=== PATIENT | male | born 1955 | race Caucasian/White ===

== ENCOUNTER 2019-12-29 17:49 | Emergency (ER) | payer BC ==
--- OUTSIDE RECORDS SUMMARY | 2019-12-29 18:24 | XMS REPORT | Continuity of Care Document ---
:1955 External Reference #:[id number] Author Name Navi Ghosh M.D. (transmitted by agent of provider Jovanna Valera ) Address [address], [address] [place] [id number] Care Team Providers Name Role Phone Emery Duncan MD - Family Medicine Care Team Information Skin Washer [phone] Problems Active Problems Provider Date Parkinson's disease Zeferino Jaeger M.D. Onset: 02/19/2015 Social History Type Date Description Comments Sex Unknown Tobacco Use Start: Unknown Never Smoked Cigarettes Smoking Status Reviewed: 12/03/19 Never Smoked Cigarettes ETOH Use Denies alcohol use Tobacco Use Start: Unknown Patient has never smoked Recreational Drug Use Denies Drug Use Exercise Type/Frequency Exercises regularly active at home Allergies, Adverse Reactions, Alerts Description No Known Drug Allergies Medications Active Medications SIG Qnty Indications Ordering Provider Date Carbidopa-Levodopa 2 tabs by mouth 1260tabs Navi Ghosh, 06/03/2014 every morning; 2 M.D. 25-100mg Tablets tab every 2-3 hours throughout rest of day History Medications Carbidopa-Levodopa 2 tabs by mouth 90tabs Navi Ghosh, 11/02/2019 - 10-100mg every morning; 1 M.D. 11/02/2019 Tablets Dispers tab every 2-3 hours throughout rest of day Carbidopa-Levodopa 2 tabs by mouth 90tabs Navi Ghosh, 11/02/2019 - 25-100mg every morning; 1 M.D. 11/05/2019 Tablets tab every 2-3 hours throughout rest of day Immunizations Description No Information Available Vital Signs Date Vital Result Comment 12/03/2019 8:49am Height 73 inches 6'1" Weight 142.00 lb Heart Rate 75 /min BP Systolic 142 mmHg BP Diastolic 88 mmHg BMI (Body Mass Index) 18.7 kg/m2 11/07/2019 11:51am Height 73 inches 6'1" Weight 140.00 lb Heart Rate 77 /min BP Systolic 142 mmHg BP Diastolic 100 mmHg BMI (Body Mass Index) 18.5 kg/m2 Results Description No Information Available Procedures Date Code Description Status 09/03/2019 36394 Neurostimulator Pulse Generator Analysis W/O Reprogramming Completed 06/08/2019 70406 Neurostimulator Pulse Generator Analysis W/O Reprogramming Completed Medical Devices Description No Information Available Encounters Type Date Location Provider Dx Diagnosis Office Visit 11/07/2019 [facility] Navi Ghosh G20 Parkinson' s 11:45a [facility] Dona disease Assessments Date Code Description Provider 12/03/2019 G20 Parkinson's disease Navi Ghosh M.D. 11/07/2019 G20 Parkinson's disease Navi Ghosh M.D. 09/03/2019 G20 Parkinson's disease Navi Ghosh M.D. 09/03/2019 Z45.42 Encounter for adjustment and management of Navi Ghosh M.D. neurostimulator 06/08/2019 G20 Parkinson's disease Navi Ghosh M.D. 06/08/2019 Z45.42 Encounter for adjustment and management of Navi Ghosh M.D. neurostimulator Plan of Treatment Future Appointment(s):12/06/2019 4:00 pm - Navi Ghosh M.D. at [facility] - Navi Ghosh M.D.G20 Parkinson's diseaseFollow up:Follow up on for Reprogramming Functional Status Description No Information Available Mental Status Description No Information Available Referrals Description No Information Available
--- NOTE | 2019-12-29 20:11 | ED ---
Back Pain - HPI Summary HPI Summary: This patient is a 64 year old M with a history of Parkinsons and DBS presenting to ED with a chief complaint of right-sided back pain since last week. Last week, the patient fell. He was able to get up after the initial fall. Since then, the pain has been constant. However, today, he bent over and fell to the ground and he could not get back up as he had cramping pain. Patient fell on ice today. At the time, patient states the pain was 10/10. Patient denies trouble walking or trouble using the bathroom. The pain does not radiate anywhere and is confined to one area. He has been taking Ibuprofen as needed for the pain. The patient rates the pain 1/10 in severity. Symptoms aggravated by nothing. Symptoms alleviated by Ibuprofen. - History of Current Complaint Chief Complaint: EDBackInjuryPain Stated Complaint: BACK PAIN PER PT Hx Obtained From: Patient Onset/Duration: Sudden Onset, Lasting Weeks - 1 week, Still Present, Worse Since Onset/Duration: Started Weeks Ago, Traumatic - Fall, Still Present Timing: Constant, Lasting Weeks Back Pain Location: Is Discrete @ - Right low back Severity Initially: Severe Severity Currently: Mild Pain Intensity: 1 Pain Scale Used: 0-10 Numeric Aggravating Symptom(s): Nothing Alleviating Symptom(s): OTC Meds - Ibuprofen Associated Signs And Symptoms: Negative: Bladder Incontinence, Bowel Incontinence, Pain with Weight Bearing - Allergies/Home Medications Allergies/Adverse Reactions: Allergies Allergy/AdvReac Type Severity Reaction Status Date / Time No Known Allergies Allergy Verified 12/29/19 18:09 PMH/Surg Hx/FS Hx/Imm Hx Sensory History: Denies: Hx Legally Blind, Hx Deafness Opthamlomology History: Denies: Hx Legally Blind EENT History: Denies: Hx Deafness Neurological History: Reports: Other Neuro Impairments/Disorders - Parkinson's - Surgical History Surgical History: None Surgery Procedure, Year, and Place: Denies Infectious Disease History: No Infectious Disease History: Denies: Traveled Outside the [place] in Last 30 Days - Family History Known Family History: Positive: Other - Negative: suicide attempt Negative: Hypertension, Diabetes - Social History Alcohol Use: None Hx Substance Use: No Substance Use Type: Reports: None Hx Tobacco Use: No Smoking Status (MU): Never Smoked Tobacco Review of Systems Gastrointestinal: Negative - Difficulty having bowel movement Genitourinary: Negative - Difficulty urinating Musculoskeletal: Negative - Difficulty walking, Other - Back pain All Other Systems Reviewed And Are Negative: Yes Physical Exam - Summary Physical Exam Summary: Appearance: Well-appearing, Well-nourished, lying in bed comfortable Skin: Warm, dry, no obvious rash Eyes: sclera anicteric, no conjunctival pallor ENT: mucous membranes moist Neck: deferred Respiratory: No signs of respiratory distress Cardiovascular: Appears well perfused, pulses are nml Abdomen: deferred Musculoskeletal: Focal tenderness over posterior superior iliac spine on the right, no bruising or swelling Neurological: Awake and alert, mentation is normal, speech is fluent and appropriate Psychiatric: affect is normal, does not appear anxious or depressed Triage Information Reviewed: Yes Vital Signs On Initial Exam: Initial Vitals Temp Pulse Resp BP Pulse Ox 98.2 F 81 19 161/112 99 12/29/19 18:04 12/29/19 18:04 12/29/19 18:04 12/29/19 18:04 12/29/19 18:04 Vital Signs Reviewed: Yes Procedures - Sedation Patient Received Moderate/Deep Sedation with Procedure: No Diagnostics - Vital Signs Vital Signs Temp Pulse Resp BP Pulse Ox 12/29/19 18:04 98.2 F 81 19 161/112 99 - Laboratory Lab Statement: Any lab studies that have been ordered have been reviewed, and results considered in the medical decision making process. - Radiology Lumbar XR Radiology Interpretation Completed By: ED Physician Summary of Radiographic Findings: Negative for fracture, pending official radiology report. Re-Evaluation - Re-Evaluation First Eval Re-Evaluation Time: 21:15 Comment: Discussed results with patient. Patient will be discharged home with dx of back spasm. Patient understands and agrees with this plan. Back Pain Course/Dx - Course Course Of Treatment: This patient is a 64 year old M with a history of Parkinson s and DBS presenting to ED with a chief complaint of right-sided back pain since last week worsening after a fall today. Lumbar XR was negative for fracture, pending official radiology report. Patient will be discharged home with dx of back spasm. Patient understands and agrees with this plan. - Diagnoses Provider Diagnoses: Back spasm Discharge ED - Sign-Out/Discharge Documenting (check all that apply): Patient Departure - Discharge - Discharge Plan Condition: Good Disposition: HOME Prescriptions: Carisoprodol TAB* [Soma TAB*] 350 mg PO Q6H PRN #15 tab MDD 3 PRN Reason: Spasms Patient Education Materials: Muscle Spasm (ED) Referrals: Heriberto Chiu MD [Primary Care Provider] - - Billing Disposition and Condition Condition: GOOD Disposition: Home - Attestation Statements Document Initiated by Scribe: Yes Documenting Scribe: Arthur Vega Provider For Whom Mireyaibgem is Documenting (Include Credential): Marc Anaya MD Scribe Attestation: IArthur, scribed for Marc Anaya MD on 12/30/19 at 0639. Scribe Documentation Reviewed: Yes Provider Attestation: The documentation as recorded by the Arthur brooke accurately reflects the service I personally performed and the decisions made by me, Marc Anaya MD Status of Scribe Document: Viewed
[2019-12-29 22:26] VITALS: BP 109/75
== END 2019-12-29 21:32 | disposition home or self-care (01) ==
LOC: ED 17:49
DX: M62.830 Muscle spasm of back (principal); G20 Parkinson's disease; W00.0XXA Fall on same level due to ice and snow, initial encounter; Y92.9 Unspecified place or not applicable
CPT/HCPCS: 72110; 99282

== ENCOUNTER 2022-12-28 18:17 | Inpatient (IN) ==
[2022-12-28] MEDS ORDERED: Lactated Ringers 1000 ml BAG 1,000 ML IV ONE (18:58)
[2022-12-28 19:15] LABS: Albumin 4.1 g/dL (3.2-5.2); Calcium 9.1 mg/dL (8.6-10.3); Potassium 4.2 mmol/L (3.5-5.0); Total Bilirubin 0.7 mg/dL (0.2-1.0)
[2022-12-28 19:22] LABS: Albumin/Globulin Ratio 1.4 (1-3); Creatinine, Serum 0.76 mg/dL (0.67-1.17); Globulin 2.9 g/dL (2-4); eGFR CKD-EPI 99.7 (>60)
[2022-12-28 19:23] LABS: ABS Lymphocytes 0.4 10^3/ul (1.0-4.8); ABS Monocytes 1.1 10^3/ul (0-0.8); ABS Neutrophils 11.4 10^3/ul (1.5-7.7); Hematocrit 44 % (42-52); Hemoglobin 14.3 g/dL (14.0-18.0); Lymphocyte % 3.3 %; Mean Corpuscular HGB Conc 33 g/dL (31-36); Mean Corpuscular Hemoglobin 29 pg (27-31); Mean Corpuscular Volume 87 fL (80-94); Platelet Count 176 10^3/uL (150-450); Red Blood Count 5.02 10^6 /uL (4.18-5.48); Red Cell Distribution Width 13 % (10-15); White Blood Count 12.9 10^3/uL (3.5-10.8)
[2022-12-28] MEDS ORDERED: Carbidopa/Levodop 25/100 MG TAB PO ONE ×2 (19:23→23:12)
[2022-12-28 19:58] LABS: Hepatitis C Antibody Negative (Negative)
[2022-12-28] MEDS ORDERED: NS 0.9% 500 ml BAG 500 ML IV ONE (21:08)
[2022-12-28 22:45] LABS: Urine Appearance Cloudy; Urine Bilirubin Negative (Negative); Urine Blood 2+ (Negative); Urine Color Yellow; Urine Glucose Negative (Negative); Urine Ketones Trace (Negative); Urine Nitrite Negative (Negative); Urine Protein 1+(30 mg/dL) (Negative); Urine Specific Gravity 1.026 (1.002-1.030); Urine Urobilinogen Negative (Negative)
[2022-12-28 22:55] LABS: Urine Bacteria 1+ (Absent); Urine Red Blood Cell 2+(6-10/hpf) (Absent); Urine Squamous Epithelial Cell Present (Absent); Urine White Blood Cell 1+(6-10/hpf) (Absent)
[2022-12-28] MEDS ORDERED: Iohexol 350 (CONTRAST) 500 ML MDV IV ONE (22:56)
[2022-12-29] MEDS ORDERED: Azithromycin 500 mg/250 ml NS 500 MG/250 ML BAG IVPB ONE (00:51)
[2022-12-29] MEDS ORDERED: cefTRIAXone 1 gm/50 mL D5W 1 GM/50 ML BAG IV ONE (00:51)
[2022-12-29] MEDS: Enoxaparin 40 MG/0.4 ML SYR SUBCUT SCH (03:16)
[2022-12-29] MEDS ORDERED: Lactated Ringers 1000 ml BAG 1,000 ML IV ONE (03:25)
[2022-12-29 10:02] LABS: ABS Lymphocytes 0.7 10^3/ul (1.0-4.8); ABS Monocytes 1.1 10^3/ul (0-0.8); ABS Neutrophils 7.5 10^3/ul (1.5-7.7); Eosinophil % 0.3 %; Hematocrit 40 % (42-52); Hemoglobin 13.2 g/dL (14.0-18.0); Lymphocyte % 7.9 %; Mean Corpuscular HGB Conc 33 g/dL (31-36); Mean Corpuscular Hemoglobin 29 pg (27-31); Mean Corpuscular Volume 88 fL (80-94); Mean Platelet Volume 8.8 fL (7.4-10.4); Platelet Count 157 10^3/uL (150-450); Red Blood Count 4.52 10^6 /uL (4.18-5.48); Red Cell Distribution Width 13 % (10-15); White Blood Count 9.5 10^3/uL (3.5-10.8)
[2022-12-29] MEDS: Carbidopa/Levodop 25/100 MG TAB PO SCH ×4 (10:29→20:44)
[2022-12-29 10:30] LABS: Calcium 8.7 mg/dL (8.6-10.3); Creatinine, Serum 0.79 mg/dL (0.67-1.17); eGFR CKD-EPI 98.6 (>60)
[2022-12-29] MEDS: Carbidopa/Levodop 25/100 MG TAB PO PRN ×2 (18:03→22:38)
[2022-12-30] MEDS ORDERED: cefTRIAXone 1 gm/50 mL D5W 1 GM/50 ML BAG IV SCH (02:00)
[2022-12-30] MEDS: Carbidopa/Levodop 25/100 MG TAB PO PRN ×5 (02:13→21:51)
[2022-12-30 06:56] LABS: ABS Eosinophils 0.2 10^3/ul (0-0.6); ABS Lymphocytes 0.9 10^3/ul (1.0-4.8); ABS Monocytes 0.9 10^3/ul (0-0.8); ABS Neutrophils 5.5 10^3/ul (1.5-7.7); Eosinophil % 2.5 %; Hematocrit 37 % (42-52); Hemoglobin 12.3 g/dL (14.0-18.0); Lymphocyte % 12.7 %; Mean Corpuscular HGB Conc 33 g/dL (31-36); Mean Corpuscular Hemoglobin 29 pg (27-31); Mean Corpuscular Volume 88 fL (80-94); Mean Platelet Volume 8.5 fL (7.4-10.4); Platelet Count 136 10^3/uL (150-450); Red Blood Count 4.22 10^6 /uL (4.18-5.48); Red Cell Distribution Width 13 % (10-15); White Blood Count 7.5 10^3/uL (3.5-10.8)
[2022-12-30 07:49] LABS: Calcium 8.4 mg/dL (8.6-10.3); Creatinine, Serum 0.75 mg/dL (0.67-1.17); Magnesium 2.1 mg/dL (1.9-2.7); eGFR CKD-EPI 100.1 (>60)
[2022-12-30] MEDS: Enoxaparin 40 MG/0.4 ML SYR SUBCUT SCH (08:30)
[2022-12-30] MEDS: Carbidopa/Levodop 25/100 MG TAB PO SCH ×4 (08:31→19:25)
[2022-12-31] MEDS: Carbidopa/Levodop 25/100 MG TAB PO PRN ×2 (00:08→03:03)
[2022-12-31 06:47] LABS: ABS Eosinophils 0.3 10^3/ul (0-0.6); ABS Monocytes 0.6 10^3/ul (0-0.8); ABS Neutrophils 3.4 10^3/ul (1.5-7.7); Eosinophil % 5.8 %; Hematocrit 36 % (42-52); Hemoglobin 12.3 g/dL (14.0-18.0); Lymphocyte % 19.1 %; Mean Corpuscular HGB Conc 34 g/dL (31-36); Mean Corpuscular Hemoglobin 30 pg (27-31); Mean Corpuscular Volume 87 fL (80-94); Platelet Count 147 10^3/uL (150-450); Red Blood Count 4.14 10^6 /uL (4.18-5.48); Red Cell Distribution Width 13 % (10-15); White Blood Count 5.4 10^3/uL (3.5-10.8)
[2022-12-31 07:07] LABS: Calcium 8.6 mg/dL (8.6-10.3); Creatinine, Serum 0.72 mg/dL (0.67-1.17); Potassium 3.9 mmol/L (3.5-5.0); eGFR CKD-EPI 101.4 (>60)
[2022-12-31 07:23] VITALS: BP 186/99
[2022-12-31] MEDS: Enoxaparin 40 MG/0.4 ML SYR SUBCUT SCH (07:58)
[2022-12-31] MEDS: Carbidopa/Levodop 25/100 MG TAB PO SCH (07:58)
== END 2022-12-31 09:30 | DRG 194 ==
LOC: ED 18:17 → EDHOLD 18:17 → MED 12-29 07:34
PROVIDERS: ADMIT Internal Medicine; ATTEND Internal Medicine

== ENCOUNTER 2023-12-08 08:53 | Observation (INO) ==
[2023-12-08] MEDS ORDERED: Flumazenil 0.5 mg/5 ml 0.1 MG/ML 5 ml VIAL IV PRN (11:27)
[2023-12-08] MEDS ORDERED: Naloxone 0.4 mg VIAL 0.4 mg/ml 1 ml VIAL IV PUSH PRN (11:27)
[2023-12-08] MEDS ORDERED: Midazolam 10 mg/10 ml VIAL 1 mg/ml 10 ml VIAL (10 mg) IV SLOW PU ONE (11:27)
[2023-12-08] MEDS ORDERED: fentaNYL 100 mcg/2 ml 50 MCG/ML VIAL IV SLOW PU ONE (11:27)
[2023-12-08] MEDS ORDERED: Heparin 2 UNITS/ML 1000 mls 3,000 ML IV ONE (11:49)
[2023-12-08] MEDS ORDERED: Lidocaine 1% MPF 5 ML VIAL ONE (11:49)
[2023-12-08] MEDS ORDERED: Iohexol 350 (CONTRAST) 200 ML MDV IV ONE (11:50)
[2023-12-08] MEDS ORDERED: Iohexol 350 (CONTRAST) 100 ML PAK IV ONE ×2 (11:55→12:09)
[2023-12-08] MEDS ORDERED: niCARdipine 0.1MG/ML IVPREMIX 20 MG/200 ML BAG IV ONE (11:55)
[2023-12-08] MEDS ORDERED: nitroGLYCERIN DRIP 25,000 MCG/250 ML BTL ONE (11:55)
[2023-12-08] MEDS ORDERED: Midazolam 5 mg/5 ml VIAL 1 mg/ml 5 ml VIAL (5 mg) ONE (11:58)
[2023-12-08] MEDS ORDERED: fentaNYL 100 mcg/2 ml 50 MCG/ML VIAL ONE (11:58)
[2023-12-08] MEDS ORDERED: Heparin 1,000 UNIT/ML 10 ml (10,000 UNITS) CATHLAB/DIALYSIS ONE ×2 (11:59→12:52)
[2023-12-08] MEDS ORDERED: Ondansetron 4 mg VIAL 2 MG/ML 2 ml VIAL IV PRN (13:37)
[2023-12-08] MEDS ORDERED: oxyCODONE/Acetamin 5/325 mg TAB PO PRN (13:37)
[2023-12-08] MEDS: Carbidopa/Levodop 25/100 MG TAB PO SCH (16:16)
[2023-12-08] MEDS ORDERED: Labetalol IV 5 MG/ML 20 ml VIAL IV PUSH ONE (18:03)
[2023-12-08] MEDS: Carbidopa/Levodop 25/100 MG TAB PO PRN ×2 (20:38→22:17)
[2023-12-09] MEDS: Carbidopa/Levodop 25/100 MG TAB PO PRN ×3 (01:40→08:18)
[2023-12-09 05:06] LABS: ABS Basophils 0.1 10^3/uL (0.0-0.1); ABS Eosinophils 0.2 10^3/uL (0.0-0.5); ABS Lymphocytes 1.1 10^3/uL (1.0-4.8); ABS Monocytes 0.7 10^3/uL (0.0-1.1); ABS Neutrophils 5.6 10^3/uL (1.5-7.6); ABS Nucleated RBC 0.01 10^3/ul; Eosinophil % 2.7 %; Hematocrit 34.9 % (38-53); Lymphocyte % 14.5 %; Mean Corpuscular Hgb Conc 34.3 g/dL (31-36); Mean Corpuscular Volume 87.4 fL (80-97); Mean Platelet Volume 9.1 fL (7.5-11.2); Nucleated Red Blood Cells % 0.1 %/100WBC (0.0-0.8); Platelet Count 154 10^3/uL (150-450); Red Cell Distribution Width 13.5 % (12-17); White Blood Count 7.6 10^3/uL (3.6-10.2)
[2023-12-09 05:23] LABS: Calcium 8.5 mg/dL (8.6-10.3); Creatinine, Serum 0.8 mg/dL (0.67-1.17); Potassium 3.8 mmol/L (3.5-5.0); eGFR CKD-EPI 97.6 (>60)
[2023-12-09] MEDS: Carbidopa/Levodop 25/100 MG TAB PO SCH ×2 (06:01→10:10)
[2023-12-09 09:00] LABS: Rapid COVID-19 Molecular Undetected (Undetected)
[2023-12-09] MEDS ORDERED: CMCS: Mirabegron 25 mg ER TAB (NF) PO SCH (09:00)
[2023-12-09] MEDS ORDERED: Multivitamins/Minerals TAB PO SCH (09:00)
[2023-12-09 09:21] LABS: Urine Appearance Cloudy; Urine Bilirubin Negative (Negative); Urine Blood 1+ (Negative); Urine Color Yellow; Urine Glucose Negative (Negative); Urine Ketones Trace (Negative); Urine Nitrite Negative (Negative); Urine Protein Negative (Negative); Urine Specific Gravity 1.025 (1.002-1.030); Urine Urobilinogen Negative (Negative)
[2023-12-09 09:35] LABS: Urine Bacteria Absent (Absent); Urine Red Blood Cell 2+(6-10/hpf) (Absent); Urine Sperm Present (Absent); Urine Squamous Epithelial Cell Present (Absent); Urine White Blood Cell Trace(0-5/hpf) (Absent)
[2023-12-09 10:04] LABS: Influenza A Molecular Negative (Negative); Influenza B Molecular Negative (Negative)
[2023-12-09 10:28] VITALS: BP 142/89
[2023-12-09] MEDS ORDERED: Carbidopa/Levodop 25/100 MG TAB PO SCH (11:00)
== END 2023-12-09 11:20 | disposition home or self-care (01) ==
LOC: CHICATH 08:53 → ICU 08:53
PROVIDERS: ADMIT Internal Medicine; ATTEND Internal Medicine